=== PATIENT | female | born 1985 | race Hispanic/Latino ===

== ENCOUNTER 2017-08-21 08:19 | Emergency (ER) | payer OTHER ==
[2017-08-21 08:26] VITALS: BMI 36.1
[2017-08-21 09:04] VITALS: TEMP 97.5
[2017-08-21] MEDS ORDERED: Tetracaine 0.5% Ophth 2 ML BOTTLE OD ONE (09:32)
--- NOTE | 2017-08-21 09:54 | ED PDOC ---
HPI: Eye Injury/Pain Time Seen by Provider: 08/21/17 09:11 Chief Complaint (Nursing): Eye Problem Chief Complaint (Provider): R eye irritation History Per: Patient History/Exam Limitations: no limitations Onset/Duration Of Symptoms: Days (1) Current Symptoms Are (Timing): Still Present Injury To Eye?: No Severity: Moderate Wears Contact Lens?: No Associated Symptoms: FB Sensation, Itching. denies: Decreased Vision, Swelling , Discharge From Eye Additional Complaint(s): 32yo female c/o right eye redness, irritation and tearing since yesterday. No fever, no change vision. States she had a cold last week and her son had pink eye last week. No contact lenses or glasses. Past Medical History Reviewed: Historical Data, Nursing Documentation, Vital Signs Vital Signs: Last Vital Signs Temp 97.5 F L 08/21/17 09:03 Pulse 134 H 08/21/17 09:03 Resp 16 08/21/17 09:03 BP 179/101 H 08/21/17 09:03 Pulse Ox 100 08/21/17 09:03 - Medical History PMH: Gastritis, HTN (not on meds) - Surgical History Surgical History: Tonsillectomy - Family History Family History: States: Unknown Family Hx - Living Arrangements Living Arrangements: With Family - Home Medications Home Medications: Ambulatory Orders Medication Instructions Recorded No122/Iron/Folic Acid 1 each PO DAILY #30 tablet 08/30/15 [ Multi Tablet] - Allergies Allergies/Adverse Reactions: Allergies Allergy/AdvReac Type Severity Reaction Status Date / Time No Known Allergies Allergy Verified 08/30/15 10:20 Review of Systems Constitutional: Negative for: Fever Eyes: Positive for: Pain, Conjunctivae Inflammation, Eyelid Inflammation, Redness. Negative for: Vision Change Respiratory: Negative for: Cough Gastrointestinal: Negative for: Abdominal Pain Skin: Negative for: Rash, Lesions Neurological: Negative for: Weakness, Numbness, Headache, Dizziness Physical Exam - Reviewed Nursing Documentation Reviewed: Yes Vital Signs Reviewed: Yes - Physical Exam Appears: Positive for: Well, Non-toxic Head Exam: Positive for: ATRAUMATIC Skin: Positive for: Normal Color, Warm, Dry Eye Exam: Positive for: Conjunctival injection, Other (spot uptake at 12:00 on cornea fluroscein). Negative for: Periorbital swelling, Scleral icterus - ECG O2 Sat by Pulse Oximetry: 100 Medical Decision Making Medical Decision Making: polytrim initiated mandatory followup w ophtho Disposition - Clinical Impression Clinical Impression: Eye infection - Disposition Referrals: Eugene Cobos MD [Staff Provider] - Condition: STABLE Additional Instructions: Return to ER for any worse or new symptoms or change in vision. See eye doctor Dr Cobos tomorrow for re-evaluation. Instructions: Conjunctivitis (ED)
[2017-08-21] MEDS ORDERED: Polymyxin/Trimethoprim Ophth Soln OD STA (09:57)
[2017-08-21 10:02] VITALS: BP 145/84; PULSE 105; RESP 20; O2SAT 98
== END 2017-08-21 10:44 | disposition home or self-care (01) ==
LOC: H.ER 08:19
DX: H10.9 Unspecified conjunctivitis (principal); I10 Essential (primary) hypertension

== ENCOUNTER 2017-08-25 17:39 | Emergency (ER) | payer OTHER ==
[2017-08-25 17:39] VITALS: BMI 36.1
[2017-08-25 17:50] VITALS: BP 169/112; PULSE 114; RESP 16; TEMP 97.8; O2SAT 99
[2017-08-25] MEDS ORDERED: Albuterol-Ipratrop 3 mg / 0.5 (3 ml) UD INH PRN (19:07)
--- NOTE | 2017-08-25 19:09 | ED PDOC ---
HPI: CCC, URI, Sore Throat Time Seen by Provider: 08/25/17 18:12 Chief Complaint (Nursing): Cough, Cold, Congestion Chief Complaint (Provider): Cough History Per: Patient History/Exam Limitations: no limitations Onset/Duration Of Symptoms: Days (x2 weeks) Current Symptoms Are (Timing): Still Present Location Of Pain: None Sick Contacts (Context): None Associated Symptoms: denies: Fever Ear Symptoms: Bilateral: None Additional Complaint(s): 32 year old female presents to the ED complaining of cough x2 weeks. The patient states that the cough is intermittent, dry and produces phlegm. She states thats he did not want to come into the ED but states that "her baby daddy made her come". PMD: FAMILY PROVIDER,NO Past Medical History Reviewed: Historical Data, Nursing Documentation, Vital Signs Vital Signs: Last Vital Signs Temp 97.8 F 08/25/17 17:47 Pulse 114 H 08/25/17 17:47 Resp 16 08/25/17 17:47 BP 169/112 H 08/25/17 17:47 Pulse Ox 99 08/25/17 20:10 - Medical History PMH: Gastritis, HTN (not on meds) - Surgical History Surgical History: Tonsillectomy - Family History Family History: States: Unknown Family Hx - Social History Current smoker - smoking cessation education provided: No (Former Smoker) Ex-Smoker (has not smoked in the last 12 months): No Alcohol: None Drugs: Denies - Home Medications Home Medications: Ambulatory Orders Medication Instructions Recorded No122/Iron/Folic Acid 1 each PO DAILY #30 tablet 08/30/15 [ Multi Tablet] - Allergies Allergies/Adverse Reactions: Allergies Allergy/AdvReac Type Severity Reaction Status Date / Time No Known Allergies Allergy Verified 08/25/17 17:47 Review of Systems ROS Statement: Except As Marked, All Systems Reviewed And Found Negative Constitutional: Negative for: Fever Respiratory: Positive for: Cough (intermittent and dry) Physical Exam - Reviewed Nursing Documentation Reviewed: Yes Vital Signs Reviewed: Yes - Physical Exam Appears: Positive for: No Acute Distress Skin: Positive for: Normal Color, Warm, Dry. Negative for: Rash Eye Exam: Positive for: Normal appearance, EOMI, PERRL ENT: Positive for: Normal ENT Inspection. Negative for: Nasal Congestion, Tonsillar Exudate, Tonsillar Swelling Cardiovascular/Chest: Positive for: Regular Rate, Rhythm, Chest Non Tender. Negative for: Tachycardia Respiratory: Positive for: Wheezing (mild wheezing). Negative for: Rhonchi, Respiratory Distress Neurologic/Psych: Positive for: Alert, Oriented, Gait - ECG O2 Sat by Pulse Oximetry: 99 (RA) Pulse Ox Interpretation: Normal Medical Decision Making Medical Decision Makin Initial Impression 32 y/o female presenting with cough Initial Plan: * Upreg * CXR * Albuterol 3 ml INH RQ4 * Peak Flow * Reevaluation 1999 - Pt yelling and using profanity in ER. Pt stating she is "not signing fucking shit because she has been waiting for x-ray" and that she will "leave and go to [place]". Security notified. 2019 - XR tech at bedside and patient refuses to go to xray. Documented by Bhavna Adair acting as a scribe for Shilpi Denney PA-C. All medical record entries made by the Scribe were at my direction and personally dictated by me. I have reviewed the chart and agree that the record accurately reflects my personal performance of the history, physical exam, medical decision making, and the department course for this patient. I have also personally directed, reviewed, and agree with the discharge instructions and disposition. Disposition - Clinical Impression Clinical Impression: Cough - Disposition Disposition: Left W/O Treatment Disposition Time: 20:20 Condition: STABLE Forms: Word[employer] (Hungarian)
[2017-08-25] MEDS ORDERED: Albuterol-Ipratrop 3 mg / 0.5 (3 ml) UD ONE (20:32)
== END 2017-08-25 20:40 | disposition left against medical advice (07) ==
LOC: H.ER 17:39
DX: I10 Essential (primary) hypertension (principal)